=== PATIENT | male | born 1965 | race Caucasian/White ===

== ENCOUNTER 2024-04-22 10:00 | Emergency (ER) | payer MEDICAID, SELFPAY ==
--- NOTE | 2024-04-22 10:09 | XR_ITS ---
Examination: Ultrasound soft tissue perineum TECHNIQUE: By resolution grayscale soft tissues perineum Exam date and time: April 22, 2024 1329 hours INDICATIONS: Right perirectal pain and mass beginning 2 weeks ago FINDINGS: Soft tissue swelling in the right perineal region with findings consistent with right perianal abscess 4.4 x 0.6 cm IMPRESSION: Findings most consistent with right perineal abscess Recommend CT scan pelvis post intravenous contrast follow-up
--- NOTE | 2024-04-22 10:15 | EDNOTE_ITS ---
ED Skin Abcess FB-RME/HPI General Chief complaint: General Adult/Misc Complain Stated complaint: ABCESS Time Seen by Provider: 04/22/24 10:03 Arrival date/time: 04/22/24 10:00 RME / HPI RME / HPI narrative: This section includes all my notes and documentations, including HPI, PE, MDM, Procedure Notes, and PLAN. Hernan Villegas MD HPI: 58 year old male presents to the ED for evaluation of a right buttock abscess that began approximately one week ago. He reports the onset of localized pain in the right buttock, accompanied by swelling, which has progressively increased in size. The pain is described as constant and dull, with periods of sharp exacerbations. He notes that the pain worsens with sitting and during movement, but there is no associated fever, redness, or warmth to the area. The patient denies any recent trauma or history of similar abscesses. He has not attempted any treatments at home. No other complaints. ROS: Gastrointestinal: negative except as documented in HPI. Musculoskeletal: negative except as documented in HPI. Skin: negative except as documented in HPI. Neurological: negative except as documented in HPI. Physical Exam: General:? Alert and oriented.?? Eyes:? Conjunctivae and lids clear.?? ENT:? No nasal congestion.?? Neck:? Supple.?? Lungs:? No respiratory distress.?? Skin:?There is a probable abscess to the right perirectal area. Warm and dry.?? Neuro:? Alert and oriented X 3. My interpretation of the rectal US report is: Soft tissue swelling in the right perineal region with findings consistent with right perianal abscess 4.4 x 0.6 cm. Abscess I&D procedure note: Right perirectal area was prepped and draped in normal sterile fashion. Local anesthesia achieved with 1% lidocaine, 2 mL. Used #11 blade and made 0.5 cm incision. Profuse amount of pus drained. Irrigation performed with normal saline. Topical dressing applied. Patient tolerated well with no complications. Prescribed ABX and recommended recheck with our surgeon. Discharge Instructions from Dr. Villegas: ?Your abscess was successfully incised and drained pus. ?Take clindamycin to help kill the germs causing your infection. ?Three times per day (until the incision closes), soak for 15 minutes in warm water with antibacterial soap and Epsom salt. Try to gently squeeze out more pus. ?After drying as much as possible, apply new dressing. ?See Dr. Shaw (our surgeon) on 04/23/24 for recheck, he may need to surgically remove the abscess down the road. Phone:? [address], [place] [address] Call the office and let them know you were seen in the ER and he was on-call, and they will give you an appointment. -Seek immediate medical care with fever > 100.4, spreading redness, or with any concerns. Related Data Previous Rx's ?Medication ?Instructions ?Recorded cetirizine 10 mg tablet 10 mg PO QDAY #5 tabs 12/24/18 doxycycline hyclate 100 mg tablet 100 mg PO BID #20 tabs 12/24/18 ibuprofen 600 mg tablet 600 mg PO Q6H PRN Pain Scale 1-3 12/24/18 (Mild #20 tabs nicotine 14 mg/24 hr daily 14 mg TOP QDAY #14 ea 12/24/18 transdermal patch clindamycin HCl 300 mg capsule 300 mg PO QID 10 days #40 caps 04/22/24 Allergies Allergy/AdvReac Type Severity Reaction Status Date / Time No Known Allergies Allergy Verified 12/23/18 07:43 Review of Systems Review of Systems Systems Reviewed: All systems reviewed, normal except as documented Past Medical History Past Medical History NEUROLOGIC: Negative Neurological Disorders CARDIAC: Negative Cardiac Disorders or Congestive Heart Failure RESPIRATORY: Negative Chronic Obstructive Pulmonary Disease (COPD) GENITOURINARY: Negative Renal Disease MUSCULOSKELETAL: Negative Musculoskeletal Disorders ENDOCRINE: Negative Diabetes Mellitus Type 1 or Diabetes Mellitus Type 2 HEMATOLOGIC: Negative Blood Disorders PSYCHO/SOCIAL: Positive Depression and Anxiety OTHER HISTORY: Negative Cancer Family History FAMILY HISTORY: Positive Family Cardiac Disorders (Mother); Negative Family Cancer (Mother) Surgical History SURGICAL: Positive Joint Replacement (surgery on right arm) Social History SMOKING STATUS: Never smoker SUBSTANCE USE: marijuana ED Exam Narrative Physical exam: As noted in HPI Course Quality Measures none Orders Category Date Time Status US soft tissue lower back abd Stat Exams 04/22/24 10:09 Completed Lidocaine 1% 20 ml [Xylocaine 1% 20 ML] Med 04/22/24 13:47 Discontinued 20 ml INFL X1 ONE Vital Signs Vital signs: Vital Signs Temperature 97.8 F 04/22/24 10:31 Pulse Rate 66 04/22/24 10:31 Respiratory Rate 20 04/22/24 10:31 Blood Pressure 130/81 04/22/24 10:31 Pulse Oximetry (%) 94 L 04/22/24 10:31 Oxygen Delivery Method Room Air 04/22/24 10:31 Pulse ox is 94% on room air which is adequate. Skin / Abscess / Foreign Body MDM Narrative MDM Narrative:: Kika Chun am scribing for and in the presence of Dr. Villegas. Patient data External records reviewed:: [facility] previous records (I reviewed admission from 12/23/2018 through 12/24/2018) Clinical information provided by:: patient Social determinants that could affect healthcare access:: none Patient has the following chronic illnesses:: No chronic medical hx reported How is presenting disease/condition affected by chronic disease/condition?: no chronic disease Evaluation data The following diagnostics were reviewed and interpreted by me:: radiology exam( s) Lab and/or radiology exams considered but not ordered:: None Interpretation Summary: Perirectal abscess Medications / Prescriptions Medications or Prescriptions considered but not ordered:: None Medication administrations:: Medication Administration History Discontinued Medications Lidocaine HCl (Lidocaine Hcl 1% 20 Ml Vial) 20 ml INFL X1 ONE Stop: 04/22/24 13:48 Last Admin: 04/22/24 14:18 Dose: Not Given Documented By: SISI Non-Admin Reason: Discontinued Lidocaine infiltration for local anesthesia Consultations Consultation(s) initiated? (list below): No Diagnosis Skin/Abscess Differential Diagnosis: abscess of skin or subcutaneous tissue, cellulitis and other (Abscess) Most likely diagnosis given after review of the tests above:: Perirrectal abscess Admission Indicated Admission indicated?: not indicated Explain why admission is indicated or not indicated:: Does not meet admission criteria Admission Request Was there a request for admission?: No Disposition Plan Disposition Plan: Discharge Discharge Attestation Discharge Attestation: The patient and all family members were given an opportunity to ask questions and understood the discharge instructions. Discharge instructions specifically effects, indications for sooner follow up or return to the emergency department, and the expected course of current diagnosis. Patient condition: Stable Discharge Plan Plan Patient Disposition: HOME (Self Care) Prescriptions/Referrals Prescriptions/Med Rec: New clindamycin HCl 300 mg capsule 300 mg PO QID 10 Days Qty: 40 0RF No Action nicotine 14 mg/24 hr Patch 24 Hour 14 mg TOP QDAY Qty: 14 0RF cetirizine 10 mg Tablet 10 mg PO QDAY Qty: 5 0RF ibuprofen 600 mg Tablet 600 mg PO Q6H PRN (Reason: Pain Scale 1-3 (Mild) Qty: 20 0RF doxycycline hyclate 100 mg Tablet 100 mg PO BID Qty: 20 0RF Referrals: No Primary/Family,Physician [Primary Care Provider] - In 1 week Problem List Clinical Impression: Perirectal abscess Patient/Caregiver Discharge Instructions Discharge Activity: activity as tolerated Education Materials: ED ABSCESS Mari-[employer] IandD Additional Instructions: Discharge Instructions from Dr. Villegas: ?Your abscess was successfully incised and drained pus. ?Take clindamycin to help kill the germs causing your infection. ?Three times per day (until the incision closes), soak for 15 minutes in warm water with antibacterial soap and Epsom salt. Try to gently squeeze out more pus. ?After drying as much as possible, apply new dressing. ?See Dr. Shaw (our surgeon) on 04/23/24 for recheck, he may need to surgically remove the abscess down the road. Phone:? [address], [place] [address] Call the office and let them know you were seen in the ER and he was on-call, and they will give you an appointment. -Seek immediate medical care with fever > 100.4, spreading redness, or with any concerns. Print Language: Estonian Stand Alone Forms: Kayli Award Info., Patient Portal Info Letter
[2024-04-22 10:31] VITALS: BP 130/81; PULSE 66; RESP 20; TEMP 36.6; O2SAT 94; BMI 26.3
== END 2024-04-22 14:19 | disposition home or self-care (01) ==
PROVIDERS: Emergency Provider Emergency Medicine
DX: K61.1 Rectal abscess (principal)
CPT/HCPCS: 46050; 76705; 99284

== ENCOUNTER 2024-08-23 07:45 | Emergency (ER) | payer MEDICAID, SELFPAY ==
[2024-08-23 07:53] VITALS: BP 126/73; PULSE 74; RESP 18; TEMP 36.4; O2SAT 94; BMI 20.3
--- NOTE | 2024-08-23 08:21 | PD.EDSKIN ---
ED Skin Abcess FB-RME/HPI General Chief complaint: Skin/Abscess/Foreign Body Stated complaint: ABSCESS ON R) BUTT POPPED LAST NIGHT Time Seen by Provider: 08/23/24 07:57 Arrival date/time: 08/23/24 07:45 This is a 59-year-old male that comes in with complaints of possible abscess to right buttock area. Patient states that he thinks it popped last night when he was sleeping. Patient states this morning it still draining. Patient denies fever or chills. Patient reports that he had an abscess in his buttock area in the past. Patient denies any other complaints. Related Data Previous Rx's ?Medication ?Instructions ?Recorded cetirizine 10 mg tablet 10 mg PO QDAY #5 tabs 12/24/18 doxycycline hyclate 100 mg tablet 100 mg PO BID #20 tabs 12/24/18 ibuprofen 600 mg tablet 600 mg PO Q6H PRN Pain Scale 1-3 12/24/18 (Mild #20 tabs nicotine 14 mg/24 hr daily 14 mg TOP QDAY #14 ea 12/24/18 transdermal patch ibuprofen 800 mg tablet 800 mg PO Q6H PRN pain #14 tabs 08/23/24 Allergies Allergy/AdvReac Type Severity Reaction Status Date / Time No Known Allergies Allergy Verified 08/23/24 07:48 Review of Systems Review of Systems Systems Reviewed: All systems reviewed, normal except as documented Past Medical History Past Medical History NEUROLOGIC: Negative Neurological Disorders CARDIAC: Negative Cardiac Disorders or Congestive Heart Failure RESPIRATORY: Negative Chronic Obstructive Pulmonary Disease (COPD) GENITOURINARY: Negative Renal Disease MUSCULOSKELETAL: Negative Musculoskeletal Disorders ENDOCRINE: Negative Diabetes Mellitus Type 1 or Diabetes Mellitus Type 2 HEMATOLOGIC: Negative Blood Disorders PSYCHO/SOCIAL: Positive Depression and Anxiety OTHER HISTORY: Negative Cancer Family History FAMILY HISTORY: Positive Family Cardiac Disorders (Mother); Negative Family Cancer (Mother) Surgical History SURGICAL: Positive Joint Replacement (surgery on right arm) Social History SMOKING STATUS: Never smoker SUBSTANCE USE: marijuana ED Exam General General appearance: Present alert and in no apparent distress Head Head exam: Present atraumatic Eye Eye exam: Present normal appearance, PERRL and EOMI ENT ENT exam: Present normal exam, normal oropharynx and mucous membranes moist Neck Neck exam: Present normal inspection, full ROM and trachea midline Chest Chest inspection: Present normal inspection and symmetric chest wall rise Respiratory Respiratory exam: Present normal lung sounds bilaterally Cardiovascular Cardiovascular exam: Present regular rate and other (cap refill less than 2 seconds ) Abdominal Exam Abdominal exam: Present soft Extremities Exam Extremities exam: Present normal inspection and full ROM Back Exam Back exam: Present normal inspection and full ROM Neurological Exam Neurological exam: Present alert, oriented X3 and CN II-XII intact Psychiatric Psychiatric exam: Present normal affect and normal mood Skin Skin exam: Present warm, dry and other (right buttuck, 2cm 2cm round area of induration, no fluctuance surround erythema ) Course Quality Measures none Orders Category Date Time Status Clindamycin Vial [Cleocin vial] Med 08/23/24 08:22 Discontinued 600 mg IM X1 ONE HYDROcodone*/APAP 5/325 [[place] 5/325] Med 08/23/24 08:22 Discontinued 1 tab PO X1 ONE Ibuprofen Tab [Motrin Tab] Med 08/23/24 08:22 Discontinued 800 mg PO X1 ONE Ondansetron Odt [Zofran Odt] Med 08/23/24 08:22 Discontinued 4 mg PO X1 ONE Vital Signs Vital signs: Vital Signs Temperature 97.6 F 08/23/24 07:53 Pulse Rate 74 08/23/24 07:53 Respiratory Rate 18 08/23/24 07:53 Blood Pressure 126/73 08/23/24 07:53 Pulse Oximetry (%) 94 L 08/23/24 07:53 Oxygen Delivery Method Room Air 08/23/24 07:53 Skin / Abscess / Foreign Body MDM Narrative MDM Narrative:: I encourage patient to do sit baths at home and use warm compresses to right buttock area. I instructed patient to keep area clean. I treated patient with IM dose of Cleocin. I will send patient home with clindamycin by mouth. Patient told to follow-up with primary provider in 1 to 2 days. Come back to the emergency room if symptoms change or worsen. Considered I&D with but there is nothing to I&D. No fluctuance. Abscess appears to already be draining. Patient data External records reviewed:: [facility] previous records Clinical information provided by:: patient Social determinants that could affect healthcare access:: none Patient has the following chronic illnesses:: none How is presenting disease/condition affected by chronic disease/condition?: no chronic disease Evaluation data The following diagnostics were reviewed and interpreted by me:: other (specify) (none) Lab and/or radiology exams considered but not ordered:: none Interpretation Summary: see note Medications / Prescriptions Medications or Prescriptions considered but not ordered:: none Medication administrations:: Medication Administration History Discontinued Medications Hydrocodone Bitart/Acetaminophen (Hydrocodone/Apap 5/325 Tablet) 1 tab PO X1 ONE Stop: 08/23/24 08:23 Last Admin: 08/23/24 08:40 Dose: 1 tab Documented By: ER Clindamycin Phosphate (Clindamycin Phos Inj 150 Mg/Ml Vial 6 Ml) 600 mg IM X1 ONE Stop: 08/23/24 08:23 Last Admin: 08/23/24 08:40 Dose: 600 mg Documented By: ER Ibuprofen (Ibuprofen Tab 400 Mg Tablet) 800 mg PO X1 ONE Stop: 08/23/24 08:23 Last Admin: 08/23/24 08:39 Dose: 800 mg Documented By: ER Ondansetron HCl (Ondansetron Odt 4 Mg Tabrap) 4 mg PO X1 ONE; Protocol Stop: 08/23/24 08:23 Last Admin: 08/23/24 08:40 Dose: 4 mg Documented By: ER see mar Consultations Consultation(s) initiated? (list below): No Diagnosis Skin/Abscess Differential Diagnosis: abscess of skin or subcutaneous tissue, contact dermatitis and other (cellulitis ) Most likely diagnosis given after review of the tests above:: abscess draining, cellilitis Admission Indicated Admission indicated?: not indicated Admission Request Was there a request for admission?: No Disposition Plan Disposition Plan: Discharge Discharge Attestation Discharge Attestation: The patient and all family members were given an opportunity to ask questions and understood the discharge instructions. Discharge instructions specifically effects, indications for sooner follow up or return to the emergency department, and the expected course of current diagnosis. Patient condition: Stable Discharge Plan Plan Patient Disposition: HOME (Self Care) Patient condition on transfer: Stable Prescriptions/Referrals Prescriptions/Med Rec: New ibuprofen 800 mg tablet 800 mg PO Q6H PRN (Reason: pain) Qty: 14 0RF No Action nicotine 14 mg/24 hr Patch 24 Hour 14 mg TOP QDAY Qty: 14 0RF cetirizine 10 mg Tablet 10 mg PO QDAY Qty: 5 0RF ibuprofen 600 mg Tablet 600 mg PO Q6H PRN (Reason: Pain Scale 1-3 (Mild) Qty: 20 0RF doxycycline hyclate 100 mg Tablet 100 mg PO BID Qty: 20 0RF Problem List Clinical Impression: Abscess of buttock Patient/Caregiver Discharge Instructions Discharge Activity: activity as tolerated Education Materials: ED Abscess Antibiotic ... Additional Instructions: Follow up with primary provider in 1-2 days. Come back to ED if symptoms change or worsen. Keep area clean and dry may do sit baths and use warm compresses to area. Print Language: Mauritanian Stand Alone Forms: Kayli Award Info., Patient Portal Info Letter PA/PADDED PRODUCTS FINISHER Supervising Physician PA/PADDED PRODUCTS FINISHER Supervising Physician: josé miguel
[2024-08-23] MEDS: IBUPROFEN TAB 400 MG TABLET 800 MG PO (08:39)
[2024-08-23] MEDS: HYDROcodone/APAP 5/325 TABLET 1 TAB PO (08:40)
[2024-08-23] MEDS: CLINDAMYCIN PHOS INJ 150 MG/ML VIAL 6 ML 600 MG IM (08:40)
[2024-08-23] MEDS: ONDANSETRON ODT 4 MG TABRAP PO (08:40)
[2024-08-23 09:12] VITALS: BP 126/73; PULSE 74; RESP 18; TEMP 36.4; O2SAT 95
== END 2024-08-23 09:15 | disposition home or self-care (01) ==
LOC: SERX 08:36
PROVIDERS: Emergency Provider Emergency Medicine
DX: L02.31 Cutaneous abscess of buttock (principal)
CPT/HCPCS: 96372; 99283; J0736; Q0162; A9270

== ENCOUNTER 2024-09-16 10:43 | Emergency (ER) | payer MEDICAID, SELFPAY ==
[2024-09-16 10:44] VITALS: BMI 24.4
--- NOTE | 2024-09-16 10:57 | PD.EDSKIN ---
ED Skin Abcess FB-RME/HPI General Chief complaint: Skin/Abscess/Foreign Body Stated complaint: ABSCESS BUDDOKS Time Seen by Provider: 09/16/24 10:55 Arrival date/time: 09/16/24 10:43 59-year-old male presents emerged part today for concerns for abscess to buttock patient reports pain rectal region as well as right buttock Limitations: no limitations Related Data Previous Rx's ?Medication ?Instructions ?Recorded cetirizine 10 mg tablet 10 mg PO QDAY #5 tabs 12/24/18 doxycycline hyclate 100 mg tablet 100 mg PO BID #20 tabs 12/24/18 ibuprofen 600 mg tablet 600 mg PO Q6H PRN Pain Scale 1-3 12/24/18 (Mild #20 tabs nicotine 14 mg/24 hr daily 14 mg TOP QDAY #14 ea 12/24/18 transdermal patch ibuprofen 800 mg tablet 800 mg PO Q6H PRN pain #14 tabs 08/23/24 clindamycin HCl 300 mg capsule 300 mg PO TID 7 days #21 caps 09/16/24 ibuprofen 600 mg tablet 600 mg PO Q6H #30 tabs 09/16/24 Allergies Allergy/AdvReac Type Severity Reaction Status Date / Time No Known Allergies Allergy Verified 08/23/24 07:48 Review of Systems Review of Systems Systems Reviewed: All systems reviewed, normal except as documented Constitutional Constitutional: Reports system reviewed and no additional complaints, except as documented, Denies fever(s) and Denies headache(s) Eyes Eyes: Reports system reviewed and no additional complaints, except as documented and Denies blurry vision ENT Ears, Nose, Mouth, and Throat: Reports system reviewed and no additional complaints, except as documented, Denies headache(s), Denies nasal congestion and Denies nasal discharge Cardiovascular Cardiovascular: Reports system reviewed and no additional complaints, except as documented, Denies chest pain and Denies dyspnea Respiratory Respiratory: Reports system reviewed and no additional complaints, except as documented, Denies chest congestion, Denies cough and Denies dyspnea Gastrointestinal Gastrointestinal: Reports system reviewed and no additional complaints, except as documented, Denies abdominal pain and Reports other (rectal pain) Integumentary/Breasts Skin/Breast: Reports system reviewed and no additional complaints, except as documented and Denies rash Neurologic Neurologic: Reports system reviewed and no additional complaints, except as documented, Reports as per HPI and Denies headache(s) Past Medical History Past Medical History NEUROLOGIC: Negative Neurological Disorders CARDIAC: Negative Cardiac Disorders or Congestive Heart Failure RESPIRATORY: Negative Chronic Obstructive Pulmonary Disease (COPD) GENITOURINARY: Negative Renal Disease MUSCULOSKELETAL: Negative Musculoskeletal Disorders ENDOCRINE: Negative Diabetes Mellitus Type 1 or Diabetes Mellitus Type 2 HEMATOLOGIC: Negative Blood Disorders PSYCHO/SOCIAL: Positive Depression and Anxiety OTHER HISTORY: Negative Cancer Family History FAMILY HISTORY: Positive Family Cardiac Disorders (Mother); Negative Family Cancer (Mother) Surgical History SURGICAL: Positive Joint Replacement (surgery on right arm) Social History SMOKING STATUS: Never smoker SUBSTANCE USE: marijuana ED Exam General Limitations: Present no limitations General appearance: Present alert and in no apparent distress Head Head exam: Present atraumatic Eye Eye exam: Present normal appearance, PERRL and EOMI ENT ENT exam: Present normal exam, normal oropharynx and mucous membranes moist Neck Neck exam: Present normal inspection, full ROM and trachea midline Chest Chest inspection: Present normal inspection and symmetric chest wall rise Respiratory Respiratory exam: Present normal lung sounds bilaterally Cardiovascular Cardiovascular exam: Present regular rate, normal rhythm and normal heart sounds Abdominal Exam Abdominal exam: Present soft and normal bowel sounds Extremities Exam Extremities exam: Present normal inspection and full ROM Back Exam Back exam: Present normal inspection and full ROM Neurological Exam Neurological exam: Present alert, oriented X3 and CN II-XII intact Psychiatric Psychiatric exam: Present normal affect and normal mood Skin Skin exam: Present warm, dry and other (erythema buttock right ) Course Quality Measures none Orders Category Date Time Status Ibuprofen Tab [Motrin Tab] Med 09/16/24 10:55 Discontinued 800 mg PO X1 ONE Lidocaine 1% 20 ml [Xylocaine 1% 20 ML] Med 09/16/24 10:55 Discontinued 2.1 ml INFL X1 ONE cefTRIAXone [Rocephin] Med 09/16/24 10:55 Discontinued 1,000 mg IM X1 ONE Vital Signs Vital signs: Vital Signs Temperature 98.3 F 09/16/24 10:59 Pulse Rate 87 09/16/24 10:59 Respiratory Rate 16 09/16/24 10:59 Blood Pressure 132/88 H 09/16/24 10:59 Pulse Oximetry (%) 95 09/16/24 10:59 Oxygen Delivery Method Room Air 09/16/24 10:59 o2 sat 95% r/a wnl Skin / Abscess / Foreign Body MDM Narrative MDM Narrative:: 59-year-old male presents emergency department today for concerns for abscess to buttock patient reports pain rectal region as well as right buttock On exam patient well-appearing patient's not appear toxic no acute distress patient is soft nontender abdomen no discrete abscess noted no perianal abscess Patient was treated course of antibiotics and pain medication Patient data External records reviewed:: [facility] previous records Clinical information provided by:: patient Social determinants that could affect healthcare access:: none Patient has the following chronic illnesses:: none How is presenting disease/condition affected by chronic disease/condition?: no chronic disease Evaluation data The following diagnostics were reviewed and interpreted by me:: other (specify) (na ) Lab and/or radiology exams considered but not ordered:: na Interpretation Summary: na Medications / Prescriptions Medications or Prescriptions considered but not ordered:: given Medication administrations:: Medication Administration History Discontinued Medications Ceftriaxone Sodium (Ceftriaxone Sod Inj 1,000 Mg Vial) 1,000 mg IM X1 ONE Stop: 09/16/24 10:56 Last Admin: 09/16/24 11:03 Dose: 1,000 mg Documented By: EH Ibuprofen (Ibuprofen Tab 400 Mg Tablet) 800 mg PO X1 ONE Stop: 09/16/24 10:56 Last Admin: 09/16/24 11:04 Dose: 800 mg Documented By: CS Lidocaine HCl (Lidocaine Hcl 1% 20 Ml Vial) 2.1 ml INFL X1 ONE Stop: 09/16/24 10:56 Last Admin: 09/16/24 11:04 Dose: 2.1 ml Documented By: CS given Consultations Consultation(s) initiated? (list below): No Diagnosis Skin/Abscess Differential Diagnosis: abscess of skin or subcutaneous tissue, cellulitis and other (rectal pain ) Most likely diagnosis given after review of the tests above:: rectal pain Admission Indicated Admission indicated?: not indicated Admission Request Was there a request for admission?: No Disposition Plan Disposition Plan: Discharge Discharge Attestation Discharge Attestation: The patient and all family members were given an opportunity to ask questions and understood the discharge instructions. Discharge instructions specifically effects, indications for sooner follow up or return to the emergency department, and the expected course of current diagnosis. Patient condition: Stable Discharge Plan Plan Patient Disposition: HOME (Self Care) Discharge Disposition comment: Stable Prescriptions/Referrals Prescriptions/Med Rec: New clindamycin HCl 300 mg capsule 300 mg PO TID 7 Days Qty: 21 0RF ibuprofen 600 mg tablet 600 mg PO Q6H Qty: 30 0RF No Action nicotine 14 mg/24 hr Patch 24 Hour 14 mg TOP QDAY Qty: 14 0RF cetirizine 10 mg Tablet 10 mg PO QDAY Qty: 5 0RF ibuprofen 600 mg Tablet 600 mg PO Q6H PRN (Reason: Pain Scale 1-3 (Mild) Qty: 20 0RF doxycycline hyclate 100 mg Tablet 100 mg PO BID Qty: 20 0RF ibuprofen 800 mg tablet 800 mg PO Q6H PRN (Reason: pain) Qty: 14 0RF Problem List Clinical Impression: Pain, rectum Patient/Caregiver Discharge Instructions Education Materials: Anatomy of the Digestive System Additional Instructions: Please follow up with your primary care doctor in the next 24-48hrs for any worsening symptoms return here immediately Please request STD testing from your PCP Print Language: Palestinian Stand Alone Forms: Kayli Award Info., Patient Portal Info Letter PA/SUPERVISOR NEWSP[employer]ER [employer]IVERIES Supervising Physician PA/KIP Supervising Physician: Dr. martinez
[2024-09-16 10:59] VITALS: BP 132/88; PULSE 87; RESP 16; TEMP 36.8; O2SAT 95
[2024-09-16] MEDS: cefTRIAXone SOD INJ 1,000 MG VIAL 1000 MG IM (11:03)
[2024-09-16] MEDS: LIDOCAINE HCL 1% 20 ML VIAL 2.1 ML INFL (11:04)
[2024-09-16] MEDS: IBUPROFEN TAB 400 MG TABLET 800 MG PO (11:04)
== END 2024-09-16 11:10 | disposition home or self-care (01) ==
LOC: SERX 11:14
PROVIDERS: Emergency Provider Emergency Medicine
DX: K62.89 Other specified diseases of anus and rectum (principal)
CPT/HCPCS: 96372; 99283; J0696; J3490; A9270

== ENCOUNTER 2025-01-07 00:59 | Emergency (ER) | payer MEDICAID, SELFPAY ==
[2025-01-07 01:00] VITALS: BMI 20.3
[2025-01-07 01:06] VITALS: BP 154/84; PULSE 70; RESP 22; TEMP 36.6; O2SAT 95
--- NOTE | 2025-01-07 01:28 | XR_ITS ---
Examination: CT abdomen and pelvis without contrast. Coronal 3-D reconstructions. Sagittal 2-D reconstructions. Date and time of exam:December 30, 2024, 0223 hours INDICATIONS: Onset generalized abdominal pain nausea vomiting beginning tonight. CTDI: vol (mGy): 6.98 DLP: (mGycm): 411 Technique: Axial images of the abdomen have been obtained, 3 mm slice thickness Intravenous contrast material has not been administered. Low dose protocols were performed. One or more of the following dose reduction techniques were used; automated exposure control, adjustment of the mA and/or KV according to patient size, use of iterative reconstruction technique. Findings: No focal liver or splenic lesions. Contracted gallbladder. No pancreatic or adrenal mass. Bilateral 1 to 3 mm renal calculi. Mild right hydronephrosis, 6 mm distal right ureteral calculus Aorta normal size Normal appendix Contracted urinary bladder No significant prostatomegaly Fat-containing inguinal hernias Moderate osteopenia IMPRESSION: Mild right hydronephrosis, 6 mm distal right ureteral calculus
--- NOTE | 2025-01-07 01:32 | PD.EDRME ---
Rapid Medical Screening Exam E Arrival date/time: 01/07/25 00:59 59M with history of homelessness presents to ED with several hours of sudden R flank pain and N/V. Chief Complaint: Abdominal Pain Time Seen by Provider: 01/07/25 01:28 Vital signs: Vital Signs Temperature 98 F 01/07/25 01:06 Pulse Rate 70 01/07/25 01:06 Respiratory Rate 22 H 01/07/25 01:06 Blood Pressure 154/84 H 01/07/25 01:06 Pulse Oximetry (%) 95 01/07/25 01:06 Oxygen Delivery Method Room Air 01/07/25 01:06
[2025-01-07] MEDS: KETOROLAC INJ 60 MG/2 ML VIAL IM (01:53)
[2025-01-07] MEDS: ONDANSETRON ODT 4 MG TABRAP PO (01:53)
[2025-01-07 02:22] LABS: Collection Type, Urine Clean Catch; Squamous Epithelial Cell,Urine 0 /hpf (0-5)
[2025-01-07 02:29] LABS: Basophils # (Auto) 0.0 Thou/mm3 (0.0-0.2); Basophils % (Auto) 0 % (0-2.5); Eosinophils # (Auto) 0.1 Thou/mm3 (0.0-0.5); Eosinophils % (Auto) 3 % (0-10); Hematocrit 41.7 % (41.0-53.0); Hemoglobin 14.0 g/dL (13.5-16.0); Immature Granulocytes Auto 0.01 Thou/mm3 (0.00-0.00); Lymphocytes # (Auto) 1.4 Thou/mm3 (1.0-4.8); Lymphocytes % (Auto) 26 % (10-50); Mean Corpuscular HGB Conc 33.6 g/dl (31.0-37.0); Mean Corpuscular Hemoglobin 33.1 pg (25.0-35.0); Mean Corpuscular Volume 99 fL (80-100); Monocytes # (Auto) 0.6 Thou/mm3 (0.0-0.8); Monocytes % (Auto) 11 % (0-12); Neutrophils # (Auto) 3.2 Thou/mm3 (1.8-7.7); Neutrophils % (Auto) 60 % (37-80); Nucleated Red Blood Cell # 0.00 Thou/mm3 (0.00-0.00); Nucleated Red Blood Cell % 0 /100 WBC (0); Platelet Count 151 Thou/mm3 (140-440); RDW Standard Deviation 51.8 fL (35.1-43.9); Red Blood Count 4.23 Miln/mm3 (4.50-5.90); White Blood Count 5.3 Thou/mm3 (3.8-10.6)
[2025-01-07 02:31] LABS: Bilirubin,Urine Negative (Negative); Blood,Urine 3+ (Negative); Clarity,Urine Clear (Clear/Hazy); Color,Urine Lt-Yellow (Lt Yel-Yel); Culture Indicated,Urine Not Indicated; Glucose, Urine Negative (Negative); Ketones,Urine Negative (Negative); Leukocyte Esterase,Urine Negative (Negative); Nitrite,Urine Negative (Negative); PH,Urine 6.0 (5.0-7.0); Protein,Urine Negative (Neg - Trace); RBC,Urine 4 /hpf (0-3); Specific Gravity,Urine 1.020 (1.001-1.035); Urobilinogen,Urine Negative mg/dL (0.0-1.0); WBC,Urine 4 /hpf (0-5)
[2025-01-07 03:02] LABS: Alanine Aminotransferase 25 U/L (10-49); Albumin, Serum 4.1 gm/dL (3.5-5.0); Albumin/Globulin Ratio 1.9 (1.2-2.2); Alcohol, Blood Medical < 3.0 mg/dL (0-10.0); Alkaline Phosphatase 96 U/L (46-116); Anion Gap 5 (7-16); Aspartate Amino Transferase 21 U/L (0-34); BUN/Creatinine Ratio 15 Ratio (12-20); Bilirubin,Total 0.4 mg/dL (0.3-1.2); Blood Urea Nitrogen 19 mg/dL (9-23); Calcium 9.7 mg/dL (8.3-10.6); Calcium (Corrected) 9.7 mg/dL (8.5-10.1); Carbon Dioxide 27.7 mMol/L (20.0-31.0); Chloride 113 mMol/L (98-107); Creatinine (Component) 1.3 mg/dL (0.6-1.3); Estimated Creatinine Clearance 60.3 mL/min (>60); Globulin 2.2 gm/dL (2.3-3.5); Glucose 111 mg/dL (74-106); Lipase 79 U/L (12-53); Osmolality,Calculated 293 (275-295); Potassium 4.4 mMol/L (3.4-5.1); Sodium 146 mMol/L (136-145); Total Protein 6.3 gm/dL (5.7-8.2); eGFR > 60 See Note
[2025-01-07 03:02] LABS: Amphetamine/Methamp Scrn,U Negative (Negative); Barbiturate Screen,Urine Negative (Negative); Benzodiazepines Screen,Urine Negative (Negative); Benzoylecgonine Screen, Ur Negative (Negative); Fentanyl Screen,Urine Negative (Negative); Opiate Screen,Urine Negative (Negative); THC Screen,Urine Positive (Negative)
--- NOTE | 2025-01-07 03:28 | PRELIM_ITS ---
CT scan of the abdomen and pelvis without intravenous contrast (axial sections with sagittal and coronal reformats) January 07, 2025 at 02:23 hours Clinical History: Right flank pain. Comparison: No prior study is available for comparison. Findings: The lung bases are clear. The gallbladder is contracted. There is a 6 mm obstructing calculus in the right distal ureter (coronal image 97/152) causing moderate hydroureteronephrosis and periureteric/perinephric fat stranding. There are bilateral non-obstructing calculi measuring 1-2 mm. There are bilateral renal cortical cysts, the largest one in the left kidney measures 2.3 cm. The liver, pancreas, spleen, and adrenals are unremarkable on this noncontrast study. No evidence of bowel obstruction is seen. A moderate amount of fecal material is present in the colon. The appendix is within normal limits (axial images [id number]). There is no mesenteric or retroperitoneal adenopathy. The urinary bladder is incompletely distended at the time of the examination. There is no free fluid or free air. The aorta and its branches demonstrate atheromatous calcification without evidence of aneurysm. Early degenerative changes are identified in the spine. Impression: 6 mm obstructing calculus in the right distal ureter causing moderate hydroureteronephrosis. Recommend clinical correlation. Other findings are as described above. Report Electronically Signed By: Juventino Morrison 01/07/2025 3:27:38 AM [EST]
--- NOTE | 2025-01-07 03:33 | PD.EDBACK ---
ED Back Injury Pain RME/HPI General Chief Complaint: Abdominal Pain Stated Complaint: ABD PAIN Time Seen by Provider: 01/07/25 01:28 Arrival date/time: 01/07/25 00:59 59M with history of homelessness presents to ED with several hours of sudden R flank pain and N/V. Limitations: no limitations RME / HPI RME / HPI Narrative: 01/07/25 00:59 Related Data Previous Rx's ?Medication ?Instructions ?Recorded cetirizine 10 mg tablet 10 mg PO QDAY #5 tabs 12/24/18 doxycycline hyclate 100 mg tablet 100 mg PO BID #20 tabs 12/24/18 ibuprofen 600 mg tablet 600 mg PO Q6H PRN Pain Scale 1-3 12/24/18 (Mild #20 tabs nicotine 14 mg/24 hr daily 14 mg TOP QDAY #14 ea 12/24/18 transdermal patch ibuprofen 800 mg tablet 800 mg PO Q6H PRN pain #14 tabs 08/23/24 ibuprofen 600 mg tablet 600 mg PO Q6H #30 tabs 09/16/24 naproxen 500 mg tablet 500 mg PO BID PRN pain #30 tabs 01/07/25 ondansetron 4 mg disintegrating 4 mg PO Q8H PRN nausea and 01/07/25 tablet vomiting #14 tabs tamsulosin 0.4 mg capsule (Flomax) 0.4 mg PO QDAY #20 caps 01/07/25 Allergies Allergy/AdvReac Type Severity Reaction Status Date / Time No Known Allergies Allergy Verified 01/07/25 00:59 Review of Systems Review of Systems Systems Reviewed: All systems reviewed, normal except as documented Constitutional Constitutional: Reports system reviewed and no additional complaints, except as documented, Denies fever(s) and Denies headache(s) ENT Ears, Nose, Mouth, and Throat: Denies disequilibrium and Denies headache(s) Cardiovascular Cardiovascular: Reports system reviewed and no additional complaints, except as documented, Denies chest pain and Denies dyspnea Respiratory Respiratory: Reports system reviewed and no additional complaints, except as documented, Denies cough and Denies dyspnea Gastrointestinal Gastrointestinal: Reports system reviewed and no additional complaints, except as documented, Reports as per HPI, Denies abdominal pain, Reports nausea and Reports vomiting Genitourinary Genitourinary: Reports as per HPI and Reports flank pain Neurologic Neurologic: Reports system reviewed and no additional complaints, except as documented, Denies confusion, Denies disequilibrium and Denies headache(s) Psychiatric Psychiatric: Denies confusion Past Medical History Past Medical History NEUROLOGIC: Negative Neurological Disorders CARDIAC: Negative Cardiac Disorders or Congestive Heart Failure RESPIRATORY: Negative Chronic Obstructive Pulmonary Disease (COPD) GENITOURINARY: Negative Renal Disease MUSCULOSKELETAL: Negative Musculoskeletal Disorders ENDOCRINE: Negative Diabetes Mellitus Type 1 or Diabetes Mellitus Type 2 HEMATOLOGIC: Negative Blood Disorders PSYCHO/SOCIAL: Positive Depression and Anxiety OTHER HISTORY: Negative Cancer Family History FAMILY HISTORY: Positive Family Cardiac Disorders (Mother); Negative Family Cancer (Mother) Surgical History SURGICAL: Positive Joint Replacement (surgery on right arm) Social History SMOKING STATUS: Former smoker SUBSTANCE USE: marijuana ED Exam General Limitations: Present no limitations General appearance: Present alert and in no apparent distress Head Head exam: Present atraumatic Eye Eye exam: Present normal appearance, PERRL and EOMI ENT ENT exam: Present normal exam, normal oropharynx and mucous membranes moist Neck Neck exam: Present normal inspection, full ROM and trachea midline Chest Chest inspection: Present normal inspection and symmetric chest wall rise Respiratory Respiratory exam: Present normal lung sounds bilaterally Cardiovascular Cardiovascular exam: Present regular rate, normal rhythm and normal heart sounds Abdominal Exam Abdominal exam: Present soft and normal bowel sounds Extremities Exam Extremities exam: Present normal inspection and full ROM Back Exam Back exam: Present normal inspection and full ROM Neurological Exam Neurological exam: Present alert, oriented X3 and CN II-XII intact Psychiatric Psychiatric exam: Present normal affect and normal mood Skin Skin exam: Present warm, dry, intact and normal color Course Quality Measures none Orders Category Date Time Status CT abdomen pelvis wo con Stat Exams 01/07/25 01:28 Taken Alcohol, Blood Medical Stat Lab 01/07/25 01:55 Completed CBC Stat Lab 01/07/25 01:55 Completed CMP [Comprehensive Metabolic Panel] Stat Lab 01/07/25 01:55 Completed Drug Screen,Urine Stat Lab 01/07/25 01:57 Completed Lipase Stat Lab 01/07/25 01:55 Completed Urinalysis, C/S if Indicated Stat Lab 01/07/25 01:57 Completed Ketorolac Inj [Toradol Inj] Med 01/07/25 01:28 Discontinued 60 mg IM X1 ONE Ondansetron Odt [Zofran Odt] Med 01/07/25 01:28 Discontinued 4 mg PO X1 ONE Tamsulosin HCl [Flomax] Med 01/07/25 03:33 Discontinued 0.4 mg PO X1 ONE Vital Signs Vital signs: Vital Signs Temperature 98 F 01/07/25 01:06 Pulse Rate 70 01/07/25 01:06 Respiratory Rate 22 H 01/07/25 01:06 Blood Pressure 154/84 H 01/07/25 01:06 Pulse Oximetry (%) 95 01/07/25 01:06 Oxygen Delivery Method Room Air 01/07/25 01:06 O2 at 95% on RA and WNLs Back Pain / Injury MDM Narrative MDM Narrative:: 59M with history of homelessness presents to ED with several hours of sudden R flank pain and N/V. Physical exam reveals no ab tenderness. Patient is afebrile, alert, but appears to be uncomfortable. CT reveals R distal 6 mm kidney stone. No leukocytosis. CMP unremarkable. UA only blood. Marijuana tox positive. Lipase mildly elevated, but no evidence of pancreatitis on CT. Upon reassessment, no more pain. Meds and counseling services manager given. Patient data External records reviewed:: [facility] previous records Clinical information provided by:: patient Social determinants that could affect healthcare access:: housing Patient has the following chronic illnesses:: homelessness How is presenting disease/condition affected by chronic disease/condition?: exacerbated by Evaluation data The following diagnostics were reviewed and interpreted by me:: lab results and radiology exam(s) Lab and/or radiology exams considered but not ordered:: ordered Interpretation Summary: above Medications / Prescriptions Medications or Prescriptions considered but not ordered:: ordered Medication administrations:: Medication Administration History Discontinued Medications Ketorolac Tromethamine (Ketorolac Inj 60 Mg/2 Ml Vial) 60 mg IM X1 ONE Stop: 01/07/25 01:29 Last Admin: 01/07/25 01:53 Dose: 60 mg Documented By: LIZBETH Ondansetron HCl (Ondansetron Odt 4 Mg Tabrap) 4 mg PO X1 ONE; Protocol Stop: 01/07/25 01:29 Last Admin: 01/07/25 01:53 Dose: 4 mg Documented By: LIZBETH Tamsulosin HCl (Tamsulosin Hcl 0.4 Mg Capsule) 0.4 mg PO X1 ONE Stop: 01/07/25 03:34 above Consultations Consultation(s) initiated? (list below): No Diagnosis Differential diagnosis back pain/injury: lumbar radiculopathy, sciatica, strain of lumbar region, renal colic, pyelonephritis, thoracic back pain, AAA, discitis and other (kidney stone) Most likely diagnosis given after review of the tests above:: kidney stone Admission Indicated Admission indicated?: not indicated Admission Request Was there a request for admission?: No Disposition Plan Disposition Plan: Discharge Discharge Attestation Discharge Attestation: The patient and all family members were given an opportunity to ask questions and understood the discharge instructions. Discharge instructions specifically effects, indications for sooner follow up or return to the emergency department, and the expected course of current diagnosis. Patient condition: Stable Discharge Plan Plan Patient Disposition: HOME (Self Care) Prescriptions/Referrals Prescriptions/Med Rec: New ondansetron 4 mg tablet,disintegrating 4 mg PO Q8H PRN (Reason: nausea and vomiting) Qty: 14 0RF tamsulosin [Flomax] 0.4 mg capsule 0.4 mg PO QDAY Qty: 20 0RF naproxen 500 mg tablet 500 mg PO BID PRN (Reason: pain) Qty: 30 0RF No Action nicotine 14 mg/24 hr Patch 24 Hour 14 mg TOP QDAY Qty: 14 0RF cetirizine 10 mg Tablet 10 mg PO QDAY Qty: 5 0RF ibuprofen 600 mg Tablet 600 mg PO Q6H PRN (Reason: Pain Scale 1-3 (Mild) Qty: 20 0RF doxycycline hyclate 100 mg Tablet 100 mg PO BID Qty: 20 0RF ibuprofen 600 mg tablet 600 mg PO Q6H Qty: 30 0RF ibuprofen 800 mg tablet 800 mg PO Q6H PRN (Reason: pain) Qty: 14 0RF Problem List Clinical Impression: Calculus of kidney Patient/Caregiver Discharge Instructions Education Materials: ED Kidney Stone w/ Colic Additional Instructions: Please follow-up with PCP within 24-48 hours and return immediately if symptoms worsen. See PCP for referral to urologist if problem persists. Print Language: Martiniquais Stand Alone Forms: Patient Portal Info Letter PA/REGULATORY SERVICES CONSULTANT Supervising Physician MONA/REGULATORY SERVICES CONSULTANT Supervising Physician: Dr. Barrera
[2025-01-07 03:44] VITALS: BP 124/72; PULSE 51; RESP 17; TEMP 36.3; O2SAT 97
[2025-01-07] MEDS: TAMSULOSIN HCL 0.4 MG CAPSULE PO (04:02)
== END 2025-01-07 04:11 | disposition home or self-care (01) ==
LOC: SERX 04:04
PROVIDERS: Physician Assistant; Emergency Provider Emergency Medicine; PCP Family Medicine
DX: N20.0 Calculus of kidney (principal); Z59.00 Homelessness unspecified
CPT/HCPCS: 36415; 74176; 80053; 80307; 80320; 81001; 83690; 85025; 96372; 99283; J1885; Q0162; A9270; G0480

== ENCOUNTER 2025-01-21 12:28 | Emergency (ER) | payer OTHER, MEDICAID, SELFPAY ==
[2025-01-21 12:29] VITALS: BMI 23.0
[2025-01-21 12:52] VITALS: BP 148/92; PULSE 64; RESP 19; TEMP 37.1; O2SAT 98
--- NOTE | 2025-01-21 13:12 | XR_ITS ---
Examination: CT abdomen and pelvis without contrast. Coronal 3-D reconstructions. Sagittal 2-D reconstructions. Date and time of exam:January 21, 2025 1437 hours INDICATIONS: Right-sided flank pain beginning 2 weeks ago, right hydronephrosis 6 mm distal right ureteral calculus on CT stone study December 30, 2024 COMPARISON: January 07, 2025 CTDI: vol (mGy): 7.07 DLP: (mGycm): 441 Technique: Axial images of the abdomen have been obtained, 3 mm slice thickness Intravenous contrast material has not been administered. Low dose protocols were performed. One or more of the following dose reduction techniques were used; automated exposure control, adjustment of the mA and/or KV according to patient size, use of iterative reconstruction technique. Findings: No focal liver or splenic lesions Contracted gallbladder No pancreatic or adrenal mass Multiple left renal calculi 1 to 3 mm Mild right hydronephrosis, 1 mm distal right ureteral calculus, 6 mm right ureterovesical junction calculus Normal appendix No prostatomegaly Fat-containing inguinal hernias IMPRESSION: Mild right hydronephrosis, 1 mm distal right ureteral calculus, 6 mm distal right ureterovesical junction calculus
--- NOTE | 2025-01-21 13:13 | PD.EDRME ---
Rapid Medical Screening Exam RME Arrival date/time: 01/21/25 12:28 59-year-old male presents to the Emergency Department due to complaint of abdominal pain Chief Complaint: Abdominal Pain Vital signs: Vital Signs Temperature 98.7 F 01/21/25 12:52 Pulse Rate 64 01/21/25 12:52 Respiratory Rate 19 01/21/25 12:52 Blood Pressure 148/92 H 01/21/25 12:52 Pulse Oximetry (%) 98 01/21/25 12:52 Oxygen Delivery Method Room Air 01/21/25 12:52
[2025-01-21 13:28] LABS: Collection Type, Urine Clean Catch; Squamous Epithelial Cell,Urine 0 /hpf (0-5); WBC,Urine 0 /hpf (0-5)
[2025-01-21 13:43] LABS: Bacteria,Urine Rare; Bilirubin,Urine Negative (Negative); Blood,Urine 3+ (Negative); Clarity,Urine Clear (Clear/Hazy); Color,Urine Colorless (Lt Yel-Yel); Culture Indicated,Urine Not Indicated; Glucose, Urine Negative (Negative); Ketones,Urine Negative (Negative); Leukocyte Esterase,Urine Negative (Negative); Nitrite,Urine Negative (Negative); PH,Urine 7.5 (5.0-7.0); Protein,Urine Negative (Neg - Trace); RBC,Urine 418 /hpf (0-3); Specific Gravity,Urine 1.011 (1.001-1.035); Urobilinogen,Urine Negative mg/dL (0.0-1.0)
[2025-01-21] MEDS: KETOROLAC INJ 30 MG/ML VIAL IM (13:43)
[2025-01-21 13:49] LABS: Basophils # (Auto) 0.0 Thou/mm3 (0.0-0.2); Basophils % (Auto) 1 % (0-2.5); Eosinophils # (Auto) 0.1 Thou/mm3 (0.0-0.5); Eosinophils % (Auto) 2 % (0-10); Hematocrit 43.0 % (41.0-53.0); Hemoglobin 14.5 g/dL (13.5-16.0); Immature Granulocytes Auto 0.01 Thou/mm3 (0.00-0.00); Lymphocytes # (Auto) 2.1 Thou/mm3 (1.0-4.8); Lymphocytes % (Auto) 33 % (10-50); Mean Corpuscular HGB Conc 33.7 g/dl (31.0-37.0); Mean Corpuscular Hemoglobin 33.0 pg (25.0-35.0); Mean Corpuscular Volume 98 fL (80-100); Monocytes # (Auto) 0.6 Thou/mm3 (0.0-0.8); Monocytes % (Auto) 10 % (0-12); Neutrophils # (Auto) 3.6 Thou/mm3 (1.8-7.7); Neutrophils % (Auto) 55 % (37-80); Nucleated Red Blood Cell # 0.00 Thou/mm3 (0.00-0.00); Nucleated Red Blood Cell % 0 /100 WBC (0); Platelet Count 136 Thou/mm3 (140-440); RDW Standard Deviation 50.3 fL (35.1-43.9); Red Blood Count 4.40 Miln/mm3 (4.50-5.90); White Blood Count 6.4 Thou/mm3 (3.8-10.6)
[2025-01-21 14:11] LABS: Carbon Dioxide 27.1 mMol/L (20.0-31.0); Chloride 105 mMol/L (98-107); Potassium 4.2 mMol/L (3.4-5.1); Sodium 140 mMol/L (136-145)
[2025-01-21 14:12] LABS: Alanine Aminotransferase 18 U/L (10-49); Albumin, Serum 5.0 gm/dL (3.5-5.0); Albumin/Globulin Ratio 2.1 (1.2-2.2); Alkaline Phosphatase 99 U/L (46-116); Anion Gap 8 (7-16); Aspartate Amino Transferase 29 U/L (0-34); BUN/Creatinine Ratio 12 Ratio (12-20); Bilirubin,Total 0.6 mg/dL (0.3-1.2); Blood Urea Nitrogen 14 mg/dL (9-23); Calcium 9.6 mg/dL (8.3-10.6); Calcium (Corrected) 9.6 mg/dL (8.5-10.1); Creatinine (Component) 1.2 mg/dL (0.6-1.3); Estimated Creatinine Clearance 74.1 mL/min (>60); Globulin 2.4 gm/dL (2.3-3.5); Glucose 82 mg/dL (74-106); Osmolality,Calculated 278 (275-295); Total Protein 7.4 gm/dL (5.7-8.2); eGFR > 60 See Note
--- NOTE | 2025-01-21 15:13 | PD.EDABDPN ---
ED Abdominal Pain RME/HPI General Chief Complaint: Abdominal Pain Stated complaint: RIGHT LOWER ABD PAIN, BLOOD IN URINE, KIDNEY STONE Time seen by provider: 01/21/25 13:14 Arrival date/time: 01/21/25 12:28 RME / HPI RME / HPI narrative: 59-year-old male presents to the Emergency Department due to complaint of abdominal pain. Right lower abdomen, since early this morning, patient also noticed hematuria. Denies any dysuria. Denies any fever denies any vomiting. He had a history of kidney stone in the past. Related Data Previous Rx's ?Medication ?Instructions ?Recorded cetirizine 10 mg tablet 10 mg PO QDAY #5 tabs 12/24/18 doxycycline hyclate 100 mg tablet 100 mg PO BID #20 tabs 12/24/18 ibuprofen 600 mg tablet 600 mg PO Q6H PRN Pain Scale 1-3 12/24/18 (Mild #20 tabs nicotine 14 mg/24 hr daily 14 mg TOP QDAY #14 ea 12/24/18 transdermal patch ibuprofen 800 mg tablet 800 mg PO Q6H PRN pain #14 tabs 08/23/24 ibuprofen 600 mg tablet 600 mg PO Q6H #30 tabs 09/16/24 naproxen 500 mg tablet 500 mg PO BID PRN pain #30 tabs 01/07/25 ondansetron 4 mg disintegrating 4 mg PO Q8H PRN nausea and 01/07/25 tablet vomiting #14 tabs tamsulosin 0.4 mg capsule (Flomax) 0.4 mg PO QDAY #20 caps 01/07/25 ketorolac 10 mg tablet 10 mg PO Q8H PRN pain 3 days #10 01/21/25 tabs tamsulosin 0.4 mg capsule (Flomax) 0.4 mg PO QDAY #14 caps 01/21/25 Allergies Allergy/AdvReac Type Severity Reaction Status Date / Time No Known Allergies Allergy Verified 01/21/25 12:29 Review of Systems Review of Systems Narrative Review of Systems: Review of system reviewed and within normal limits except mentioned in HPI ED Exam Narrative Physical exam: VITAL SIGNS: Reviewed. GENERAL APPEARANCE: Alert and interactive, follows commands, no acute distress, HEAD AND FACE: Non-traumatic. ENT: PERRL, pink conjunctivitis, eyelid no trauma, Mucous membrane moist. NECK: Supple, nontender, no nuchal rigidity. CHEST: No tenderness, no crepitus, no paradoxical movement, no retractions. LUNGS: Clear, well ventilated, symmetric, no rales, no wheezing, no ronchi, no stridor, good breath sounds bilaterally. HEART: Regular rate, regular rhythm, no murmur, no gallops. ABDOMEN: Soft, positive bowel sounds, nondistended, no guarding, right lower quadrant tenderness, no rebound, no masses, RECTAL: Deferred. GENITAL: Deferred. NEUROLOGICAL: Gross motor function intact sensory function intact, Appropriate for age. MUSCULOSKELETAL: low back nontender, full range of motion. EXTREMITIES: Nontender, full range of motion. SKIN: Color pink, dry, no rash, no lacerations, no abrasions, no contusions. LYMPHATICS: Deferred. Course Quality Measures none Orders Category Date Time Status CT abdomen pelvis wo con Stat Exams 01/21/25 13:12 Completed CBC Stat Lab 01/21/25 13:36 Completed Comprehensive Metabolic Panel Stat Lab 01/21/25 13:36 Completed Lipase Stat Lab 01/21/25 13:36 Completed UA, C/S IF [Urinalysis, C/S if Indicated] Stat Lab 01/21/25 13:21 Completed Ketorolac Inj [Toradol Inj] Med 01/21/25 13:12 Discontinued 30 mg IM X1 ONE Vital Signs Vital signs: Vital Signs Temperature 98.7 F 01/21/25 12:52 Pulse Rate 64 01/21/25 12:52 Respiratory Rate 19 01/21/25 12:52 Blood Pressure 148/92 H 01/21/25 12:52 Pulse Oximetry (%) 98 01/21/25 12:52 Oxygen Delivery Method Room Air 01/21/25 12:52 Abdominal Pain MDM MDM Narrative MDM Narrative:: 59-year-old male presents to the Emergency Department due to complaint of abdominal pain. Right lower abdomen, since early this morning, patient also noticed hematuria. Denies any dysuria. Denies any fever denies any vomiting. He had a history of kidney stone in the past. Laboratory workup significant for hematuria. No leukocytosis creatinine is normal BUN is normal CT scan of the abdomen pelvis showed Mild right hydronephrosis, 1 mm distal right ureteral calculus, 6 mm distal right ureterovesical junction calculus Results discussed with the patient. Prior to discharge patient is not having any pain. Patient data External records reviewed:: None Clinical information provided by:: patient Social determinants that could affect healthcare access:: none Patient has the following chronic illnesses:: History of kidney stone How is presenting disease/condition affected by chronic disease/condition?: uneffected by Evaluation data The following diagnostics were reviewed and interpreted by me:: lab results and radiology exam(s) Lab and/or radiology exams considered but not ordered:: None Interpretation Summary: See results MDM Medications / Prescriptions Medications or Prescriptions considered but not ordered:: None Medication administrations:: Medication Administration History Discontinued Medications Ketorolac Tromethamine (Ketorolac Inj 30 Mg/Ml Vial) 30 mg IM X1 ONE Stop: 01/21/25 13:13 Last Admin: 01/21/25 13:43 Dose: 30 mg Documented By: Toradol IM Consultations Consultation(s) initiated? (list below): No Diagnosis Differential diagnosis abdominal pain: abdominal pain, calculus of kidney and other (Ureterolithiasis) Most likely diagnosis given after review of the tests above:: Ureterolithiasis Admission Indicated Admission indicated?: not indicated Admission Request Was there a request for admission?: No Disposition Plan Disposition Plan: Discharge Discharge Attestation Discharge Attestation: The patient was given an opportunity to ask questions and understood the discharge instructions. Discharge instructions specifically effects, indications for sooner follow up or return to the emergency department, and the expected course of current diagnosis. Patient condition: Stable Discharge Plan Plan Patient Disposition: HOME (Self Care) Discharge Disposition comment: stable Prescriptions/Referrals Prescriptions/Med Rec: New tamsulosin [Flomax] 0.4 mg capsule 0.4 mg PO QDAY Qty: 14 0RF ketorolac 10 mg tablet 10 mg PO Q8H PRN (Reason: pain) 3 Days Qty: 10 0RF No Action nicotine 14 mg/24 hr Patch 24 Hour 14 mg TOP QDAY Qty: 14 0RF cetirizine 10 mg Tablet 10 mg PO QDAY Qty: 5 0RF ibuprofen 600 mg Tablet 600 mg PO Q6H PRN (Reason: Pain Scale 1-3 (Mild) Qty: 20 0RF doxycycline hyclate 100 mg Tablet 100 mg PO BID Qty: 20 0RF ibuprofen 600 mg tablet 600 mg PO Q6H Qty: 30 0RF ibuprofen 800 mg tablet 800 mg PO Q6H PRN (Reason: pain) Qty: 14 0RF ondansetron 4 mg tablet,disintegrating 4 mg PO Q8H PRN (Reason: nausea and vomiting) Qty: 14 0RF tamsulosin [Flomax] 0.4 mg capsule 0.4 mg PO QDAY Qty: 20 0RF naproxen 500 mg tablet 500 mg PO BID PRN (Reason: pain) Qty: 30 0RF Referrals: No Primary/Family,Physician [Primary Care Provider] - In 1 week Problem List Clinical Impression: Ureterolithiasis Patient/Caregiver Discharge Instructions Discharge Activity: activity as tolerated Education Materials: ED Kidney Stone w/ Colic Additional Instructions: Thank you for the opportunity for serving you today. You are stable for discharged . You are advised to: Follow-up with your PCP in 1 to 2 days and asked for referral to urologist. Return to ED for worsening of symptoms Increase oral fluids Take medication as prescribed Print Language: Kazakh Stand Alone Forms: Kayli Award Info., Patient Portal Info Letter PA/KIP Supervising Physician MONA/KIP Supervising Physician: MD Santo
== END 2025-01-21 15:27 | disposition home or self-care (01) ==
PROVIDERS: Nurse Practitioner Primary Care; Emergency Provider Family Medicine
DX: N20.2 Calculus of kidney with calculus of ureter (principal)
CPT/HCPCS: 36415; 74176; 80053; 81001; 83690; 85025; 96372; 99284; J1885